=== PATIENT | female | born 1955 | race Caucasian/White ===

== ENCOUNTER → 2021-03-14 | Outpatient (CLI) | payer OTHER ==
--- NOTE | 2021-03-19 12:03 | RAD ---
EXAM: Bilateral digital screening mammogram with tomosynthesis. HISTORY: 65-year-old female presents for screening mammography. TECHNIQUE: Full-field digital craniocaudal and mediolateral oblique 2D and 3D tomosynthesis images of both breasts are obtained for evaluation. Computer aided detection was applied. COMPARISON: There are no prior studies available for comparison. This exam serves as a new baseline m ammogram. BREAST PARENCHYMAL DENSITY: Level D - Extremely dense. FINDINGS: There is a cluster of faint microcalcifications within the posterior 12:00 position of the right breast. There are additional benign-appearing calcifications within the right breast. There is a lobulated nodule within the posterior 11:00 position of the right breast, possibly due to an axilla ry tail lymph node. There is a biopsy clip within the anterior right breast. There is a small circums cribed nodule within the 1:00 position of the left breast at mid depth, possibly due to a lymph node given the presence of an axillary tail lymph node with similar morphology. There are benign calcifica tions within the left breast. There are benign areas of nodularity and nodular asymmetry within both breasts. IMPRESSION: BI-RADS Category 0: Additional imaging needed. RECOMMENDATION: Further evaluation with spot magnification views of a cluster of calcifications with indeterminate morphology within the posterior 12:00 position of the right breast is recommended. Sono graphic imaging of both breasts is also recommended to assess circumscribed nodules within the wax ball molder ior 11:00 position of the right breast and 1:00 position of the left breast at mid depth. If your mammogram demonstrates that you have dense breast tissue, which could hide abnormalities, and if you have other risk factors for breast cancer that have been identified, you might benefit from s upplemental screening tests that may be suggested by your ordering physician. Dense breast tissue, i n and of itself, is a relatively common condition. This information is not provided to cause undue c oncern, but rather to raise your awareness and to promote discussion with your physician regarding th e presence of other risk factors, in addition to dense breast tissue. A report of your mammography re sults will be sent to you and your physician. You should contact your physician if you have any ques tions or concerns regarding this report. Mammography is a sensitive method for finding small breast cancers, but it does not detect them all a nd is not a substitute for careful clinical examination. A negative mammogram does not negate a clin ically suspicious finding and should not result in delay in biopsying a clinically suspicious abnorma lity. PQRS compliance statement - Patient information was entered into a reminder system with a target due date for the next mammogram. "Our facility is accredited by the [employer] Mammography [employer]." Electronically signed by: Dian Stock MD (03/19/2021 12:01 PM) [id number]
== END ==
LOC: MAMMO 14:54
PROVIDERS: ATTEND Family Medicine
DX: Z12.31 Encounter for screening mammogram for malignant neoplasm of breast (principal)
CPT/HCPCS: 77063; 77067